=== PATIENT | female | born 1950 | race Hispanic/Latino ===

== ENCOUNTER 2018-04-18 15:00 | Inpatient (IN) | payer OTHER, MEDICARE ==
[~2018-04-18] VITALS: Ht 157.5 cm; Wt 112.9 kg
[2018-04-18 13:28] VITALS: BP 187/82
[2018-04-18 13:46] LABS: INR 1.09 (0.85-1.15); PARTIAL THROMBOPLASTIN TIME 29.5 SEC (26.3-35.5); PROTHROMBIN TIME 11.4 SEC (9.6-11.6)
[2018-04-18 13:49] LABS: BILIRUBIN,URINE Negative (NEGATIVE); COLOR,URINE Dark Yellow (YELLOW); GLUCOSE, URINE (UA) Negative (NEGATIVE); KETONES,URINE Negative (NEGATIVE); LEUKOCYTE ESTERASE ,URINE Small (NEGATIVE); NITRATE,URINE Negative (NEGATIVE); OCCULT BLOOD,URINE Negative (NEGATIVE); PH,URINE 5.5 (5.0-8.0); PROTEIN,URINE Trace (NEGATIVE)
[2018-04-18 13:51] LABS: APPEARANCE,URINE Clear (CLEAR); CREATININE 0.8 mg/dL (0.5-1.5); POTASSIUM 3.9 mmol/L (3.5-5.1)
[2018-04-18 14:09] LABS: BACTERIA,URINE Rare /HPF (None Seen); RBC,URINE None Seen /HPF (0-1)
[2018-04-18 14:10] LABS: MUCUS,URINE Moderate LPF (None Seen)
[~2018-04-18 15:00] MED LIST: ATOR10TA69 PO; LOSA50TA25 PO; METF-444 PO; METO-409 PO; OMEP20TA25 PO
[2018-04-19] MEDS: GENTAMICIN SULFATE 240 MG in SODIUM CHLORIDE 0.9% 100 ML IV SCH (16:45)
[2018-04-20] MEDS: GENTAMICIN SULFATE 240 MG in SODIUM CHLORIDE 0.9% 100 ML IV SCH (16:45)
[2018-04-21] VITALS (23 sets, daily range): BP systolic 143–185; BP diastolic 79–94
[2018-04-21] MEDS ORDERED: SODIUM CHLORIDE 0.9% 1000ML 1,000 ML IV ONE (10:52)
[2018-04-21] MEDS: GENTAMICIN SULFATE 240 MG in SODIUM CHLORIDE 0.9% 100 ML IV SCH ×2 (11:23→16:45)
[2018-04-21] MEDS: CEFAZOLIN SODIUM 1 GM VIAL IVP SCH ×2 (11:25→13:15)
[2018-04-21] MEDS ORDERED: BUPIVACAINE/EPI/PF 0.25% 30ML VIAL IJ ONE (12:06)
[2018-04-21] MEDS ORDERED: TRANEXAMIC ACID 1000MG/10ML IV ONE ×2 (12:06)
[2018-04-21] MEDS ORDERED: CEFAZOLIN SODIUM 1 GM VIAL ONE ×2 (12:06→16:28)
[2018-04-21] MEDS ORDERED: METOCLOPRAMIDE 10 MG/2 ML VIAL ONE (12:15)
[2018-04-21] MEDS ORDERED: ACETAMINOPHEN EXTRA STRENGTH 500 MG TABLET ONE (12:15)
[2018-04-21] MEDS ORDERED: CELECOXIB 200 MG CAP ONE (12:16)
[2018-04-21] MEDS ORDERED: OXYCODONE HCL 10 MG TAB.SR.12H PO ONE (12:16)
[2018-04-21] MEDS ORDERED: KETOROLAC TROMETHAMINE 15MG/ML ONE (12:16)
[2018-04-21] MEDS ORDERED: PROPOFOL 10 MG/ML 20ML VIAL IV ONE (12:38)
[2018-04-21] MEDS ORDERED: ROCURONIUM 10MG/1ML SYR 10 MG/ML ML ONE (12:39)
[2018-04-21] MEDS ORDERED: MIDAZOLAM HCL 1 MG/ML 2ML VIAL ONE (12:39)
[2018-04-21] MEDS ORDERED: FENTANYL CITRATE PF 50 MCG/1 ML 2ML VIAL ONE ×2 (12:39)
[2018-04-21] MEDS ORDERED: ROPIVACAINE 0.5% 5MG/ML 30ML IJ ONE (12:40)
[2018-04-21] MEDS ORDERED: LIDOCAINE HCL-MPF 1% 5ML AMP IJ ONE ×2 (12:42→15:11)
[2018-04-21] MEDS ORDERED: DEXAMETHASONE SOD PHOSPHATE 10MG/ML 1ML VIAL ONE (13:25)
[2018-04-21] MEDS ORDERED: ONDANSETRON HCL 4 MG/2 ML VIAL ONE (13:25)
[2018-04-21] MEDS ORDERED: POTASSIUM CHLORIDE 20 MEQ ERTAB PO PRN (15:15)
[2018-04-21] MEDS ORDERED: TRAMADOL HCL 50 MG TABLET PO PRN (15:15)
[2018-04-21] MEDS ORDERED: POTASSIUM CHLORIDE 20MEQ/100ML 100 ML IV PRN (15:15)
[2018-04-21] MEDS ORDERED: DiphenhydrAMINE HCL 50 MG/ML VIAL IVP PRN (15:15)
[2018-04-21] MEDS ORDERED: TEMAZEPAM 15 MG CAPSULE PO PRN (15:15)
[2018-04-21] MEDS ORDERED: LIDOCAINE HCL-MPF 1% 2ML VIAL IVP PRN (15:15)
[2018-04-21] MEDS: ACETAMINOPHEN EXTRA STRENGTH 500 MG TABLET PO SCH ×2 (15:15→23:15)
[2018-04-21] MEDS ORDERED: KETOROLAC TROMETHAMINE 15MG/ML IV PRN (15:15)
[2018-04-21] MEDS ORDERED: POTASSIUM CHLORIDE 10% ELIXIR 20 MEQ/15 ML UDCUP PO PRN (15:15)
[2018-04-21] MEDS ORDERED: OXYCODONE HCL 5 MG TAB PO PRN (15:15)
[2018-04-21] MEDS ORDERED: CALCIUM CARBONATE 500 MG TABLET PO PRN (15:15)
[2018-04-21] MEDS ORDERED: ONDANSETRON HCL 4 MG/2 ML VIAL IVP PRN (15:15)
[2018-04-21] MEDS ORDERED: FERROUS FUMARATE 324 MG TABLET PO PRN (15:15)
[2018-04-21] MEDS ORDERED: ENALAPRILAT DIHYDRATE 1.25MG/ML 1ML VIAL IV ONE (16:16)
[2018-04-21] MEDS: INSULIN HUMULIN R 100 UNIT/ML 3ML SQ SCH ×2 (16:30→23:17)
[2018-04-21] MEDS: SODIUM CHLORIDE 0.9% 1000ML 1,000 ML IV SCH (17:49)
[2018-04-21] MEDS: METFORMIN HCL 500 MG TABLET PO SCH (19:03)
[2018-04-21] MEDS: CELECOXIB 200 MG CAP PO SCH (20:20)
[2018-04-21] MEDS: ATORVASTATIN CALCIUM 10 MG TABLET PO SCH (20:20)
[2018-04-21] MEDS: ASPIRIN 325 MG TABLET PO SCH (20:20)
[2018-04-21] MEDS: PREGABALIN 25 MG CAP PO SCH (20:20)
[2018-04-21] MEDS: METOPROLOL TARTRATE 50 MG TAB PO SCH (20:20)
[2018-04-21] MEDS: CEFAZOLIN 3GM /D5W 100ML 100 ML IV SCH (20:21)
[2018-04-22] VITALS (7 sets, daily range): BP systolic 124–150; BP diastolic 53–78
[2018-04-22] MEDS: CEFAZOLIN 3GM /D5W 100ML 100 ML IV SCH (05:06)
[2018-04-22] MEDS: SODIUM CHLORIDE 0.9% 1000ML 1,000 ML IV SCH ×2 (05:06→11:02)
[2018-04-22 05:31] LABS: HEMATOCRIT 34.2 % (36-48); MEAN CORPUSCULAR HEMOGLOBIN 26.1 pg (27.0-33.0); MEAN CORPUSCULAR HGB CONC 32.5 g/dL (32.0-36.0); MEAN CORPUSCULAR VOLUME 80.5 fL (79-99); PLATELET COUNT (AUTO) 179 K/uL (130-400); RED BLOOD CELL COUNT(AUTO) 4.25 MIL/uL (4.00-5.50); RED CELL DISTRIBUTION WIDTH 14.3 % (11.0-15.5); WHITE BLOOD COUNT (AUTO) 12.7 K/uL (4.8-10.8)
[2018-04-22 05:40] LABS: CREATININE 0.8 mg/dL (0.5-1.5); POTASSIUM 4.7 mmol/L (3.5-5.1)
[2018-04-22] MEDS: ACETAMINOPHEN EXTRA STRENGTH 500 MG TABLET PO SCH ×3 (06:09→23:05)
[2018-04-22] MEDS: INSULIN HUMULIN R 100 UNIT/ML 3ML SQ SCH ×4 (06:10→20:12)
[2018-04-22] MEDS: POLYETHYLENE GLYCOL 3350 17 GM POWD.PACK PO SCH (08:27)
[2018-04-22] MEDS: CELECOXIB 200 MG CAP PO SCH ×2 (08:27→20:05)
[2018-04-22] MEDS: METFORMIN HCL 500 MG TABLET PO SCH ×2 (08:28→17:36)
[2018-04-22] MEDS: ASPIRIN 325 MG TABLET PO SCH ×2 (08:28→20:05)
[2018-04-22] MEDS: PREGABALIN 25 MG CAP PO SCH ×2 (08:28→20:05)
[2018-04-22] MEDS: METOPROLOL TARTRATE 50 MG TAB PO SCH ×3 (08:28→20:05)
[2018-04-22] MEDS: LOSARTAN 50 MG TABLET PO SCH (08:28)
[2018-04-22] MEDS: PANTOPRAZOLE SODIUM 40 MG TABLET.DR PO SCH (08:28)
[2018-04-22] MEDS: OXYCODONE HCL 5 MG TAB PO PRN (12:31)
[2018-04-22] MEDS: ATORVASTATIN CALCIUM 10 MG TABLET PO SCH (20:05)
[2018-04-23 04:47] VITALS: BP 151/82
[2018-04-23] MEDS: INSULIN HUMULIN R 100 UNIT/ML 3ML SQ SCH ×4 (06:38→21:00)
[2018-04-23] MEDS: METFORMIN HCL 500 MG TABLET PO SCH ×2 (07:03→17:29)
[2018-04-23] MEDS: ACETAMINOPHEN EXTRA STRENGTH 500 MG TABLET PO SCH ×3 (07:03→23:24)
[2018-04-23 08:16] VITALS: BP 174/91
[2018-04-23] MEDS: POLYETHYLENE GLYCOL 3350 17 GM POWD.PACK PO SCH (08:32)
[2018-04-23] MEDS: ASPIRIN 325 MG TABLET PO SCH ×2 (08:33→21:28)
[2018-04-23] MEDS: PREGABALIN 25 MG CAP PO SCH ×2 (08:33→21:28)
[2018-04-23] MEDS: PANTOPRAZOLE SODIUM 40 MG TABLET.DR PO SCH (08:33)
[2018-04-23] MEDS: CELECOXIB 200 MG CAP PO SCH ×2 (08:34→21:28)
[2018-04-23] MEDS: METOPROLOL TARTRATE 50 MG TAB PO SCH ×2 (08:34→21:28)
[2018-04-23] MEDS: LOSARTAN 50 MG TABLET PO SCH (08:34)
[2018-04-23] MEDS: OXYCODONE HCL 5 MG TAB PO PRN (08:38)
[2018-04-23 11:56] VITALS: BP 123/70
[2018-04-23 16:42] VITALS: BP 179/86
[2018-04-23] MEDS ORDERED: ASPI-1012 PO (19:51)
[2018-04-23] MEDS ORDERED: HYDR-2132 PO (19:51)
[2018-04-23 20:00] VITALS: BP 137/75
[2018-04-23] MEDS: ATORVASTATIN CALCIUM 10 MG TABLET PO SCH (21:29)
[2018-04-23 23:43] VITALS: BP 134/63
[2018-04-24 04:27] VITALS: BP 132/64
[2018-04-24] MEDS: INSULIN HUMULIN R 100 UNIT/ML 3ML SQ SCH (06:09)
[2018-04-24] MEDS: ACETAMINOPHEN EXTRA STRENGTH 500 MG TABLET PO SCH (06:26)
[2018-04-24 07:56] VITALS: BP 159/74
[2018-04-24] MEDS: OXYCODONE HCL 5 MG TAB PO PRN (08:43)
[2018-04-24] MEDS: LOSARTAN 50 MG TABLET PO SCH (08:43)
[2018-04-24] MEDS: PANTOPRAZOLE SODIUM 40 MG TABLET.DR PO SCH (08:43)
[2018-04-24] MEDS: ASPIRIN 325 MG TABLET PO SCH (08:43)
[2018-04-24] MEDS: METFORMIN HCL 500 MG TABLET PO SCH (08:43)
[2018-04-24] MEDS: PREGABALIN 25 MG CAP PO SCH (08:43)
[2018-04-24] MEDS: METOPROLOL TARTRATE 50 MG TAB PO SCH (08:43)
[2018-04-24] MEDS: CELECOXIB 200 MG CAP PO SCH (08:44)
[2018-04-24] MEDS: POLYETHYLENE GLYCOL 3350 17 GM POWD.PACK PO SCH (08:44)
[2018-04-24] MEDS ORDERED: BISACODYL 10 MG SUPP.RECT RC PRN (15:15)
== END 2018-04-24 10:07 | disposition home health service (06) | DRG 470 ==
LOC: EDSTATUS 15:00 → DAHIP 04-21 09:55 → 4AH 04-21 15:50
PROVIDERS: ADMIT Orthopaedic Surgery; ATTEND Orthopaedic Surgery
PROC: 0SRD0J9 Replacement of Left Knee Joint with Synthetic Substitute, Cemented, Open Approach (ICD-10-PCS; principal; 2018-04-21 12:43)
DX: M17.12 Unilateral primary osteoarthritis, left knee (principal); Z68.42 Body mass index [BMI] 45.0-49.9, adult; E66.01 Morbid (severe) obesity due to excess calories; B18.2 Chronic viral hepatitis C; E11.65 Type 2 diabetes mellitus with hyperglycemia; I10 Essential (primary) hypertension; H35.033 Hypertensive retinopathy, bilateral; G89.29 Other chronic pain; Z96.651 Presence of right artificial knee joint; Z96.642 Presence of left artificial hip joint; Z83.3 Family history of diabetes mellitus; Z82.49 Family history of ischemic heart disease and other diseases of the circulatory system
CPT/HCPCS: 36415; 80048; 81001; 82948; 85027; 85610; 85730; 88305; 88311; 96374; 97039; A4218; J0690; J1100; J1580; J1815; J1885; J2250; J2405; J2704; J2765; J2795; J3010; J3490; J7030

== ENCOUNTER → 2018-08-29 | Outpatient (CLI) | payer MEDICARE ==
[~2018-08-29] MED LIST changes: +ASPI-1012 PO; +HYDR-2132 PO; +IOHEXOL-350 75 ML VIAL IV ONE; -LOSA50TA25 PO; +LOSA50TA64 PO
== END | disposition home or self-care (01) ==
LOC: RAH 07:11
PROVIDERS: ATTEND Internal Medicine Gastroenterology
DX: N28.89 Other specified disorders of kidney and ureter (principal); N20.0 Calculus of kidney; I70.90 Unspecified atherosclerosis; M47.815 Spondylosis without myelopathy or radiculopathy, thoracolumbar region
CPT/HCPCS: 74170; Q9967

== ENCOUNTER → 2018-12-17 | Outpatient (CLI) | payer MEDICARE ==
[~2018-12-17] MED LIST changes: -IOHEXOL-350 75 ML VIAL IV ONE
== END | disposition home or self-care (01) ==
LOC: SHCH 14:26
PROVIDERS: ATTEND Internal Medicine Cardiovascular Disease
DX: I35.0 Nonrheumatic aortic (valve) stenosis (principal); I35.8 Other nonrheumatic aortic valve disorders
CPT/HCPCS: 93306

== ENCOUNTER → 2018-12-23 | Outpatient (CLI) | payer MEDICARE ==
[~2018-12-23] VITALS: Ht 162.6 cm; Wt 103.4 kg
[~2018-12-23] MED LIST changes: +REGADENOSON 0.4 MG/5 ML PF SYG IVP SCH
== END | disposition home or self-care (01) ==
LOC: SHCH 08:50
PROVIDERS: ATTEND Internal Medicine Cardiovascular Disease
DX: R94.31 Abnormal electrocardiogram [ECG] [EKG] (principal)
CPT/HCPCS: 78452; 93017; 96374; A9500 ×2; J2785

== ENCOUNTER 2020-06-14 05:54 | Day surgery (SDC) | payer MEDICARE ==
[~2020-06-14] VITALS: Ht 154.9 cm; Wt 117.9 kg
[~2020-06-14 05:54] MED LIST changes: -REGADENOSON 0.4 MG/5 ML PF SYG IVP SCH
[2020-06-14] MEDS ORDERED: SODIUM CHLORIDE 0.9% 1000ML 1,000 ML IV ONE (06:20)
[2020-06-14 06:29] VITALS: BP 140/78
[2020-06-14] MEDS ORDERED: HYDR12.54 PO (07:04)
[2020-06-14] MEDS ORDERED: OMEP40CA13 PO (07:04)
[2020-06-14] MEDS ORDERED: TRAM50TA4 PO (07:04)
[2020-06-14] MEDS ORDERED: SULF1TAB89 PO (07:04)
[2020-06-14] MEDS ORDERED: PROPOFOL 10 MG/ML 20ML VIAL IV ONE (09:05)
[2020-06-14 09:20] VITALS: BP 120/78
[2020-06-14 09:25] VITALS: BP 129/70
[2020-06-14 09:30] VITALS: BP 127/67
[2020-06-14 09:35] VITALS: BP 146/72
[2020-06-14 09:50] VITALS: BP 135/65
== END 2020-06-14 09:55 ==
LOC: ENDO 05:54 → DAH 05:54 → ENDO 09:55
PROVIDERS: ATTEND Internal Medicine Gastroenterology
DX: K74.60 Unspecified cirrhosis of liver (principal); K44.9 Diaphragmatic hernia without obstruction or gangrene; K22.70 Barrett's esophagus without dysplasia; K29.70 Gastritis, unspecified, without bleeding; K76.0 Fatty (change of) liver, not elsewhere classified; Z86.010 Personal history of colon polyps; I10 Essential (primary) hypertension; K21.9 Gastro-esophageal reflux disease without esophagitis; Z86.19 Personal history of other infectious and parasitic diseases; M19.90 Unspecified osteoarthritis, unspecified site; Z96.652 Presence of left artificial knee joint; Z90.710 Acquired absence of both cervix and uterus; Z96.659 Presence of unspecified artificial knee joint; Z96.642 Presence of left artificial hip joint
CPT/HCPCS: 36415; 43239; 82948; 88305; 88342; 93005; A4215; A4221; A4222; A4223; A4606; A4620; A4657; A4663; C9803; J2704; J7030; U0003

== ENCOUNTER → 2024-11-17 | Outpatient (CLI) | payer OTHER, MEDICARE ==
[~2024-11-17] MED LIST changes: -ATOR10TA69 PO; -HYDR-2132 PO; +HYDR12.54 PO; -OMEP20TA25 PO; +OMEP40CA21 PO; +SULF1TAB89 PO; +TRAM50TA4 PO
--- NOTE | 2024-11-17 16:35 | HMCIMG ---
US VENOUS DOPPLER UNILATERAL HISTORY: Right leg pain COMPARISON: None TECHNIQUE: Right lower extremity venous Doppler ultrasound study was performed. FINDINGS: The right common femoral, femoral, popliteal, and posterior tibial veins are visualized. Normal flow with augmentation and compressibilities are demonstrated. Right greater saphenous vein is patent. IMPRESSION: 1. No evidence of deep venous thrombosis is seen.
== END | disposition home or self-care (01) ==
LOC: RAH 15:39
PROVIDERS: ATTEND Internal Medicine
DX: M79.604 Pain in right leg (principal); R22.41 Localized swelling, mass and lump, right lower limb
CPT/HCPCS: 93971